=== PATIENT | male | born 1970 | race Caucasian/White ===

== ENCOUNTER → 2018-08-16 12:06 | Outpatient (CLI) | payer MEDICAID ==
--- NOTE | 2018-08-18 12:05 | ST ---
PATIENT:KAYLA CHA MEDICAL RECORD: [id number] SEX: M LOCATION:[facility] ORDER #: ADMISSION DATE: 08/16/18 AGE OF PATIENT: 47 REFERRING PHYSICIAN: INTERPRETING PHYSICIAN: JAN VINCENT MD DATE OF SERVICE: 08/16/2018 INDICATIONS: Angina, ventricular tachycardia. The patient was exercised on standard Lexiscan protocol with 31 mCi of sestamibi injected at peak stress. Rest images were done previously with 10 mCi. FINDINGS: Gated SPECT reveals a dilated cardiomyopathy, ejection fraction 38%. SPECT IMAGING: Cardiolite was used as myocardial perfusion agent. There is homogeneous uptake throughout all segments at rest and stress with no evidence of inducible ischemia or previous infarction. OVERALL IMPRESSION: This is a nonischemic cardiomyopathy; however, there is no evidence of inducible ischemia or previous infarction. Gated SPECT reveals ejection fraction 38% but no evidence of coronary artery disease. Standard medical management and treatment of the nonischemic cardiomyopathy. TRANSINT:[id number] Voice Confirmation ID: [id number] DOCUMENT ID: [id number] cc: Ravi Clifford, not found. JAN VINCENT MD at 1205 CC: [id number] DICTATION DATE: 08/17/18 1013 EXERCISE PHYSIOLOGY PROFESSOR: 08/17/18 2310 DEP CLI 08/16/18 [place] [id number] [place] [id number]
== END | disposition home or self-care (01) ==
LOC: D.HCCARDIO 12:00
PROVIDERS: ATTEND Internal Medicine Interventional Cardiology
DX: I20.9 Angina pectoris, unspecified (principal)

== ENCOUNTER → 2019-04-04 13:44 | Outpatient (CLI) | payer MEDICAID ==
--- NOTE | 2019-04-05 11:25 | EC ---
PATIENT:KAYLA CHA DATE OF SERVICE: 04/04/19 SEX: M MEDICAL RECORD: [id number] DATE OF : 68 LOCATION:[facility] AGE OF PATIENT: 48 ADMISSION DATE: 04/04/19 REFERRING PHYSICIAN: INTERPRETING PHYSICIAN: JAN PALENCIA MD ECHOCARDIOGRAM REPORT ECHO CHARGES 4 ECHO COMPLETE Date: 04/04/19 CLINICAL DIAGNOSIS: HX OF CARDIOMYOPATHY/MITRAL REGURG ECHOCARDIOGRAPHIC MEASUREMENTS (adult normal given) AC root (d.<3.7cm) 4.0 cm LV Septum d (<1.2 cm> 1.3 cm Valve Excursion 2.1 cm LV Septum (systole) 1.4 cm Left Atria (s.<4.0cm> 5.0 cm LVPW d(<1.2cm) 1.3 cm RV (d.<2.3cm) 4.4 cm LVPW (sytole) 1.4 cm LV diastole(<5.6CM) 6.1 cm MV E-F(>70mm/sec) cm LV systole 4.8 cm LVOT Diameter 2.9 cm MV exc.(>10mm) 1.6 cm Est.ejection fraction (50-75%) % DOPPLER: LVIT cm/sec A 48.0 cm/sec E 31.0 cm/sec LA cm/sec RVSP 28 mmHg LVOT 103 cm/sec AOP1/2T m/s Asc. Ao 107 cm/sec RVOT 49 cm/sec RA cm/sec PA 77 cm/sec AV Gradient Peak 4.57 mmHg AV Mean 2.44 mmHg AV Area 6.2 cm MV Gradient Peak 1.37 mmHg MV Mean 0.50 mmHg MV Area cm COMMENTS: Stone Decorator: Adrienne VAZQUEZ Autoglazier: 1 Dr. Palencia TAPE# PACS Pericardial Effusion N DATE OF SERVICE: 04/04/2019 FINDINGS: 1. Left ventricular chamber size is dilated mildly. Left ventricular systolic function is moderately reduced at 35% to 40%. 2. Left atrium is enlarged at 5.0 cm. Right atrium and right ventricular chamber sizes are mildly dilated. 3. Valvular structures have normal structure and motion. 4. Doppler interrogation reveals [id number] mitral regurgitation, [id number] tricuspid regurgitation, no other valvular insufficiency or ECHOCARDIOGRAM REPORT [id number] KAYLA CHA stenosis. Pulmonary systolic pressure estimated 28 mmHg. 5. No evidence of pericardial effusion or left ventricular thrombus. TRANSINT:[id number] Voice Confirmation ID: [id number] DOCUMENT ID: [id number] JAN PALENCIA MD at 1125 CC: [id number] DICTATION DATE: 04/04/19 170 CREDIT COMPLIANCE OFFICER: 04/04/19 2245 DEP CLI 04/04/19 [place] [id number]
== END | disposition home or self-care (01) ==
LOC: D.HCCECHO 13:44
PROVIDERS: ATTEND Nurse Practitioner Acute Care
DX: I42.9 Cardiomyopathy, unspecified (principal)